=== PATIENT | male | born 1965 | race American Indian/Alaskan Native ===

== ENCOUNTER 2016-10-11 10:50 | Emergency (ER) | payer BC ==
[2016-10-11 10:58] VITALS: BP 149/106
--- NOTE | 2016-10-11 11:00 | Emergency Department Report ---
Chief Complaint: Extremity Injury, Lower Stated Complaint: R/L KNEE PAIN Time Seen by Provider: 10/11/16 10:56 - HPI History of Present Illness: PT c/o jean pierre knee pain x 1 year. PT states he has had intermittent knee pain prior to that time. PT states that he was seen in [place], [place] for L knee and had XRs. PT states he had some "wear" on his XRs. - ROS Review of Systems: + swelling to L knee + joint pain - fever -vomiting - Exam Physical Exam: pt looks well, non toxic no erythema to jean pierre knees steady gait MSE screening note: Focused history and physical exam performed. Due to findings the following was ordered: xr ED Disposition for MSE Condition: Stable
--- NOTE | 2016-10-11 12:32 | XRay Report ---
BILATERAL KNEES, 2 VIEWS History: Bilateral knee pain and swelling. Findings: Normal bone mineralization. No evidence for fracture or osteochondral defect. There is mild joint space narrowing in the medial compartment of the right knee. There is mild joint space narrowing in the medial and lateral compartments of the left knee. Medium joint effusions are noted in the lateral images. Impression: Mild degenerative changes. Bilateral joint effusions.
--- NOTE | 2016-10-11 18:27 | Emergency Department Report ---
Entered by LAUREN QUIROS, acting as scribe for JACOBO KOWALSKI NP. ED Lower Extremity HPI - General Chief Complaint: Extremity Problem,Nontraumatic Stated Complaint: R/L KNEE PAIN Time Seen by Provider: 10/11/16 10:56 Source: patient Mode of arrival: Ambulatory Limitations: No Limitations - History of Present Illness Initial Comments: This is a 51 y/o male nontoxic, well nourished in appearance, no acute signs of distress presents with chronic, constant, left sided knee swelling and pain that has gradually worsened since onset. He states his right knee has started displaying similar Sx. Pt stated symptoms have been going on for 1 year. Pain is aggravated at his work which involves walking and standing and alleviated by rest. Pt stated he had been following-up with this for 1 year and has been dx with a left-sided meniscal tear. Pt denies trauma or injury to the area, calf pain or swelling, numbness, tingling, fever, chills, FOSTER, stiff neck, SOB, chest pain, abd pain, and n/v. Pt also notes taking ibuprofen for pain with relief. Denies past medical history. MD Complaint: knee injury (bilateral knee) -: year(s) (1) Injury: Knee: Left, Right (swelling and pain) Type of Injury: other (chronic overuse) Place: work (previous [employer], now works at [employer]) Severity: mild Severity scale (0 -10): 4 Improves With: rest Worsens With: movement Context: other (chronic overuse) Associated Symptoms: swelling, ambulatory. denies: snap/pop sensation, numbness , tingling, unable to bear weight, able to partially bear weight - Related Data Previous Rx's Medication Instructions Recorded Last Taken Type Ibuprofen [Motrin 600 MG tab] 600 mg PO Q8H PRN #15 tablet 10/11/16 Unknown Rx Allergies Allergy/AdvReac Type Severity Reaction Status Date / Time phenylephrine HCl AdvReac Intermediate Hives Verified 10/11/16 10:58 [From Joel ACUNA] ED Review of Systems Comment: All other systems reviewed and negative Constitutional: denies: chills, fever Eyes: denies: eye pain, eye discharge, vision change ENT: denies: ear pain, throat pain Respiratory: denies: cough, shortness of breath Cardiovascular: denies: chest pain Endocrine: no symptoms reported Gastrointestinal: denies: abdominal pain, nausea, vomiting, diarrhea Genitourinary: denies: urgency, dysuria Musculoskeletal: other (bilateral knee swelling and pain). denies: joint swelling Skin: as per HPI Neurological: denies: headache, numbness Psychiatric: denies: anxiety, depression Hematological/Lymphatic: denies: easy bleeding, easy bruising ED Past Medical Hx - Past Medical History Previous Medical History?: No - Surgical History Past Surgical History?: No - Social History Smoking Status: Never Smoker Substance Use Type: None - Medications Home Medications: Home Medications Medication Instructions Recorded Confirmed Last Taken Type Ibuprofen [Motrin 600 MG tab] 600 mg PO Q8H PRN #15 tablet 10/11/16 Unknown Rx ED Physical Exam - General Limitations: No Limitations General appearance: alert, in no apparent distress - Head Head exam: Present: atraumatic, normocephalic - Eye Eye exam: Present: normal appearance, PERRL, EOMI Pupils: Present: normal accommodation - ENT ENT exam: Present: normal exam, normal orophraynx, mucous membranes moist, TM's normal bilaterally, normal external ear exam - Neck Neck exam: Present: normal inspection, full ROM. Absent: tenderness, meningismus, lymphadenopathy, thyromegaly - Respiratory Respiratory exam: Present: normal lung sounds bilaterally. Absent: respiratory distress, wheezes, rales, rhonchi, stridor - Cardiovascular Cardiovascular Exam: Present: regular rate, normal rhythm, normal heart sounds, other (2+ DP and TP pulses). Absent: bradycardia, tachycardia, irregular rhythm , systolic murmur, diastolic murmur, rubs, gallop - GI/Abdominal GI/Abdominal exam: Present: soft, normal bowel sounds. Absent: distended, tenderness, guarding, rebound, rigid, diminished bowel sounds, mass, bruit - Extremities Exam Extremities exam: Present: normal inspection, full ROM, normal capillary refill. Absent: tenderness, pedal edema, joint swelling, calf tenderness - Expanded Lower Extremity Exam Left Hip exam: Present: normal inspection (bilateral), full ROM (bilateral). Absent : tenderness, swelling, abrasion, laceration, deformity, crepidus, dislocation, erythema Upper Leg exam: Present: normal inspection (51 y/o male nontoxic, well nourished in appearance, no acute signs of distress presents with chronic, constant, left sided knee swelling and pain that has gradually worsened since onset. He states his right knee has started displaying similar Sx. Pain is aggravated at his work which involves walking and standing and alleviated by rest. Pt denies trauma or injury to the area, calf pain or swelling, numbness, tingling, fever, chills, FOSTER, stiff neck, SOB, chest pain, abd pain, and n/v. Pt also notes taking ibuprofin for pain with relief. ), full ROM (bilateral). Absent: tenderness, swelling, abrasion, ecchymosis, deformity, crepidus, dislocation, erythema Knee exam: Present: normal inspection (bilateral), full ROM (bilateral), full knee extension. Absent: tenderness, swelling, abrasion, laceration, ecchymosis , deformity, crepidus, dislocation, erythema, pain w/ pronation/supination, pain /laxity with valgus, pain/laxity with varus Lower Leg exam: Present: normal inspection (bilateral), full ROM (bilateral). Absent: tenderness, swelling, abrasion, laceration, ecchymosis, deformity, crepidus, dislocation, erythema, palpable cord, Alonzo's sign Ankle exam: Present: normal inspection (bilateral), full ROM (bilateral). Absent: tenderness, swelling, deformity, crepidus, dislocation, erythema, anterior draw sign Foot/Toe exam: Present: normal inspection (bilateral), full ROM (bilateral). Absent: tenderness, swelling, laceration, ecchymosis, deformity, crepidus, erythema, amputation, puncture wound, foreign body, calcaneal tenderness, tenderness at base of 5th metatarsal, nail avulsion, subungual hematoma Neuro vascular tendon exam: Present: no vascular compromise (bilateral). Absent : pulse deficit, abnormal cap refill, motor deficit Gait: Positive: observed and normal - Back Exam Back exam: Present: normal inspection, full ROM. Absent: tenderness, CVA tenderness (R), CVA tenderness (L), muscle spasm, paraspinal tenderness, vertebral tenderness, rash noted - Neurological Exam Neurological exam: Present: alert, oriented X3, CN II-XII intact, normal gait, reflexes normal. Absent: altered, abnormal gait, motor sensory deficit - Psychiatric Psychiatric exam: Present: normal affect, normal mood - Skin Skin exam: Present: dry, intact, normal color. Absent: warm, rash - Other Other exam information: Negative calf tenderness or pain, or swelling. No joint redness or swelling. ED Course Vital Signs 10/11/16 10:53 Temperature 98.4 F Pulse Rate 79 Respiratory 18 Rate Blood Pressure 149/106 O2 Sat by Pulse 98 Oximetry ED Lower Extremity MDM - Medical Decision Making Ed course: This is a 51-year-old male that presents with jean pierre knee pain x1 year 1- after my physical exam, an xray of jean pierre has been obtained Pt was notified of xray findings with no further questions noted. 2- patient was instructed to follow-up with his primary care doctor/orthopedic doctor for further evaluation of bilateral knees with a possibility of further exam/testing such as MRI 3- patient received ibuprofen 600 mg by mouth at time of discharge and was instructed that if symptoms worsen or continue report back to emergency room as soon as possible 4- at time time of discharge, the patient does not seem toxic or ill in appearance. No acute signs of distress noted. Patient agrees to discharge treatment plan of care. No further questions noted by the patient. 5- pt was instructed to apply ice and rest the extremities. ED Disposition Clinical Impression: Knee pain, chronic Qualifiers: Laterality: bilateral Qualified Code(s): M25.561 - Pain in right knee; M25.562 - Pain in left knee; G89.29 - Other chronic pain Degenerative arthritis of knee, bilateral Qualifiers: Osteoarthritis type: unspecified Qualified Code(s): M17.0 - Bilateral primary osteoarthritis of knee Disposition: DC-01 TO HOME OR SELFCARE Is pt being admited?: No Does the pt Need Aspirin: No Condition: Stable Instructions: Ibuprofen (By mouth), Knee Pain (ED), RICE Therapy (ED) Additional Instructions: Follow-up with your primary care doctor/orthopedic doctor in 3-5 days for possibility of further testing such as an MRI. If symptoms worsen and can continue report back to emergency room as soon as possible. Take ibuprofen for pain as prescribed as needed. Prescriptions: Ibuprofen [Motrin 600 MG tab] 600 mg PO Q8H PRN #15 tablet PRN Reason: Pain Referrals: PRIMARY CARE, [Primary Care Provider] - 3-5 Days ÁNGEL NUNN MD [Staff Physician] - 3-[address] [facility] [Outside] - 3-5 Days [facility] [Outside] - 3-5 Days Forms: Work/School Release Form(ED) This documentation as recorded by the ISHAAN yost RYAN,accurately reflects the service I personally performed and the decisions made by me,JACOBO KOWALSKI, DORIAN.
== END 2016-10-11 12:27 | disposition home or self-care (01) ==
LOC: ED 10:50
DX: M17.0 Bilateral primary osteoarthritis of knee (principal); M25.561 Pain in right knee; M25.562 Pain in left knee; G89.29 Other chronic pain; Z88.8 Allergy status to other drugs, medicaments and biological substances